=== PATIENT | female | born 1940 | race Caucasian/White ===

== ENCOUNTER 2021-02-13 18:40 | Emergency (ER) | payer MEDICARE ==
--- NOTE | 2021-02-13 22:36 | ER ---
REASON FOR EMERGENCY ROOM VISIT: Dizziness. HISTORY: This is a 80-year-old woman who was previously in reasonably good health. She finished her afternoon tea and Rhubarb dessert when she subsequently started to feel somewhat lightheaded and dizzy. She went outside and did a few things in the yard and felt a bit better and she came inside the house to lie down approximately an hour later to take a nap. When she tried to get up, she noted that the room was spinning. She subsequently felt nausea and vomited x1. She is not nauseated at the present time and that has resolved. She has no history of trauma, has no tinnitus, has no visual symptoms or weakness or headaches. She does have a long-standing history of hearing loss over the last 20 years. She is normally a very active person who walks 1-1/2 to 2 miles every morning religiously. She had a similar episode to this about 1 year ago. She states it only lasted approximately 1 to 2 days and resolved on its own. She did not seek medical attention for this at that time, but she states that her dizziness was very similar to this episode. PAST MEDICAL HISTORY: Significant for: 1. Hypertension. 2. Hypothyroidism. 3. Hospitalization for pneumonia 4 years ago. MEDICATIONS: Include: 1. Lisinopril 2.5 mg p.o. daily. 2. L-thyroxine. ALLERGIES: SHE IS ALLERGIC TO ACETAMINOPHEN. REVIEW OF SYSTEMS: Pertinent positives and negatives as listed in the HPI. PHYSICAL EXAMINATION: GENERAL: She is smiling, alert, and appropriate. VITAL SIGNS: She is afebrile. Heart rate is 65, blood pressure 148/66, respiratory rate 16, O2 sats 98% on room air. HEENT: Her color looks good. No scleral icterus or conjunctivitis. Both TMs are normal. Oropharynx is normal. NECK: Supple. No bruits. No adenopathy. CHEST: Clear to auscultation with good air exchange bilaterally and no wheezes, rhonchi, or rales. CARDIAC: Regular rate without murmur. ABDOMEN: Soft and nontender. No masses or hepatosplenomegaly. EXTREMITIES: Normal pulses. No edema. NEUROLOGIC: Cranial nerves 2 through 12 are intact. Deep tendon reflexes are symmetrical bilaterally in the upper and lower extremities. Sensory examination is normal to crude touch. She has nystagmus demonstrable. LABORATORY DATA: CBC is unremarkable with a white count of 6400. Her hemoglobin is 14.3. CMP shows an anion gap of 16.5 and a creatinine of 1.07 and estimated GFR is 49. Her glucose is elevated at 139 (nonfasting). Her liver enzymes are normal. Her troponin I is less than 0.017. Her urinalysis is unremarkable with no sign of UTI. We did do a SARS-CoV- 2 RNA rapid test and that was negative. Chest x-ray shows no acute pulmonary disease. An EKG shows no acute changes with first-degree AV block. IMPRESSION: Benign positional vertigo. She has no sign of infection at this time. I think this is probably idiopathic in nature. PLAN: I explained to her the nature of this illness and described the possible cause of this in the standpoint of her inner ear function. It is a self-limiting condition usually lasting a few days to as much as 2 or 3 weeks. It usually resolves on its own and recommendation is simply supportive measures. Meclizine sometimes help, and I did give her a 7-day supply of 25 mg of meclizine to be taken in divided doses b.i.d. (12 mg p.o. b.i.d.). I told her that sometimes if it causes any side effects such as nausea or vomiting or any visual problems, she does not have to continue taking this that this is simply for symptomatic relief. Her son will be staying with her this evening. I advised her to follow up with her provider, who is . She understands and agrees with this plan. All questions were answered. NANDO /[id number]
--- NOTE | 2021-02-14 12:26 | CR ---
CLINICAL DATA: Chest pain. AP CHEST, 13 FEB 2021: No priors. The heart size is normal. The lungs are clear. No pneumothorax. No pleural effusions. No evidence of acute intrathoracic disease. Job: [id number] MTDD
== END 2021-02-13 20:50 | disposition home or self-care (01) ==
LOC: LB.ED 18:40
DX: H81.10 Benign paroxysmal vertigo, unspecified ear (principal); E03.9 Hypothyroidism, unspecified; I10 Essential (primary) hypertension; Z79.899 Other long term (current) drug therapy; Z20.822 Contact with and (suspected) exposure to COVID-19
CPT/HCPCS: 36415; 71045; 80053; 81001; 82947; 84484; 85025; 93005; 99284-25; A0425; A0429; A9270-GY; U0002